=== PATIENT | female | born 1960 | race Caucasian/White ===

== ENCOUNTER → 2020-10-09 | Outpatient (CLI) | payer BC, OTHER ==
--- NOTE | 2020-10-09 14:50 | RAD ---
EXAM: Bilateral knees, 3 views. HISTORY: Pain. COMPARISON: None. FINDINGS: 3 views of both knees are obtained. There is no fracture, dislocation or subluxation. There is mild left medial compartment joint space narrowing which is likely projectional. There is no join t effusion. IMPRESSION: No acute osseous finding. Electronically signed by: Pat Park MD (10/09/2020 2:48 PM) [id number]
== END ==
LOC: RAD 13:28
PROVIDERS: ATTEND Physician Assistant
DX: M25.562 Pain in left knee (principal); M25.561 Pain in right knee
CPT/HCPCS: 73560; 73565

== ENCOUNTER → 2020-11-06 | Outpatient (CLI) | payer OTHER ==
--- NOTE | 2020-11-06 08:38 | RAD ---
EXAM: Abdomen sonogram. HISTORY: Pain. TECHNIQUE: Sonographic imaging of the abdomen was performed. COMPARISON: None. FINDINGS: The liver is normal in size. There are 3 solid circumscribed hyperechoic lesions within the liver, the largest of which measures 5.3 cm. The gallbladder is surgically absent. The common bile d uct is mildly dilated for patient age, measuring 6.8 mm. The right kidney, pancreas and inferior vena cava are unremarkable. IMPRESSION: 1. 3 solid circumscribed hyperechoic nodules within the liver, the largest which measures 5.3 cm. In the absence of known malignancy, these are likely hemangiomas. Liver protocol MRI or CT can be perfor med to confirm benignity if clinically indicated. 2. Mild common bile duct dilatation. This may be due to reservoir effect status post cholecystectomy. Electronically signed by: Pat Park MD (11/06/2020 8:36 AM) [id number]
== END ==
LOC: US 07:46
PROVIDERS: ATTEND Clinical Nurse Specialist Family Health
DX: R10.31 Right lower quadrant pain (principal); Z90.49 Acquired absence of other specified parts of digestive tract
CPT/HCPCS: 76705

== ENCOUNTER → 2021-02-25 | Outpatient (CLI) | payer OTHER ==
[~2021-02-25] MED LIST: IOHEXOL 300 MG/ML 75 ML VIAL. IV ONE
--- NOTE | 2021-02-25 09:48 | RAD ---
EXAMINATION: CT ABDOMEN (LIVER) WITHOUT AND WITH IV CONTRAST CLINICAL HISTORY: Follow-up for 3 hepatic lesions on recent abdominal ultrasound TECHNIQUE: Noncontrast, hepatic arterial, portal venous, and 10 minute delayed phase imaging of the quentin chavez was performed utilizing IV contrast (Liver protocol). CT Dose Reduction Employed: One or more of the following individualized dose reduction techniques wer e utilized for this examination: 1. Automated exposure control 2. Adjustment of the mA and/or kV ac cording to patient size 3. Use of iterative reconstruction technique. COMPARISON: Right upper quadrant ultrasound 11/06/2020 FINDINGS: Minimal curvilinear subsegmental atelectasis and/or scarring in the right middle lobe. 1.4 cm hypodense lesion in the anterior inferior right hepatic lobe and 2.9 x 5.1 x 5.0 cm in the pos terior inferior right hepatic lobe, corresponding to 2 of the 3 lesions seen sonographically. Both le sions are hypodense on unenhanced images with peripheral lobular discontinuous contrast enhancement a nd progressive centripetal enhancement on delayed phase images. In the larger of the 2 lesions, even though there is progressive enhancement on delayed imaging the enhancement pattern remains heterogene ous with central areas of hypoenhancement. A third hepatic lesion is not definitively visualized. Biliary ductal prominence status post cholecystectomy. Pancreas, spleen, adrenal glands, and kidneys unremarkable. Tiny hiatal hernia. Partially visualized small bowel and colon unremarkable. Minimal arterial atherosclerotic calcification without aneurysm. Partially visualized thoracolumbar d egenerative changes with advanced degenerative disc disease at L2-3. IMPRESSION: 5.1 cm lesion in the posterior inferior right hepatic lobe, highly suggestive of but not definitively diagnostic for a hemangioma with persistent heterogeneous enhancement on delayed images. Follow-up f or hepatic ultrasound could be obtained in 6 months to evaluate for stability. If there are risk fact ors for malignancy, liver protocol MRI with intravenous contrast may be able to provide additional in formation. 1.4 cm lesion in the anterior-inferior right hepatic lobe, consistent with a hemangioma. Advanced degenerative disc disease at L2-3. Electronically signed by: Nic Topete DO (02/25/2021 9:46 AM) [id number]
== END ==
LOC: CT 07:59
PROVIDERS: ATTEND Clinical Nurse Specialist Family Health
DX: K44.9 Diaphragmatic hernia without obstruction or gangrene (principal); K76.9 Liver disease, unspecified; M51.36 Other intervertebral disc degeneration, lumbar region; J98.11 Atelectasis; I70.8 Atherosclerosis of other arteries; Z90.49 Acquired absence of other specified parts of digestive tract
CPT/HCPCS: 74170; Q9967

== ENCOUNTER → 2021-10-15 | Outpatient (CLI) | payer OTHER ==
--- NOTE | 2021-10-15 11:47 | RAD ---
EXAMINATION: CT abdomen with and without IV contrast. INDICATION:61 years, Female, liver disease. TECHNIQUE: Axial CT images of the abdomen was obtained. Coronal and sagittal reformatted performed. COMPARISON: 02/25/2021. Exposure: One or more of the following individualized dose reduction techniques were utilized for thi s examination: 1. Automated exposure control 2. Adjustment of the mA and/or kV according to patient size 3. Use of iterative reconstruction technique. FINDINGS: LOWER CHEST: Unremarkable. ABDOMEN: Normal size and morphology of the liver. Subcentimeter hypodensities in left hepatic lobe, too small to characterize. Redemonstrated 4.8 x 2.7 cm, hypodense lesion in hepatic segment 6 demonstrates peripheral discontinu ous nodular enhancement with progressive fill-in, stable in size since prior exam. * Stable ill-defined 1.2 cm nodular enhancing lesion in hepatic segment 5 (series 4 image 21), appea rs mild homogeneous enhancement on venous phase images and isodense to the liver parenchyma on delaye d images. * Similar appearance and enhancement pattern to the aforementioned lesion, there is 0.9 cm lesion in segment 8 (series 4 image 12), this lesion is also stable since prior exam. * Stable 0.7 cm, arterial enhancing lesion in hepatic segment 7 appears isodense to the liver on sub sequent postcontrast images, favors flash filling hemangioma. Cholecystectomy. No biliary ductal dilation. Spleen is normal. Pancreas is unremarkable. No adrenal n odule. No hydronephrosis or nephrolithiasis in either kidney. No bowel dilation. No lymphadenopathy i n the abdomen by size criteria. Patent abdominal vasculatures. No pneumoperitoneum or ascites. MUSCULOSKELETAL STRUCTURES: Severe degenerative changes at L2-L3. No acute osseous process or suspicious lesion. IMPRESSION: Stable multiple hepatic lesions including a 4.8 cm lesion in hepatic segment 6 demonstrate peripheral discontinuous nodular enhancement and progressive fill-in. These are most likely hemangiomas. Electronically signed by: Ana Juan MD (10/15/2021 11:45 AM) [facility] [email or web address]
== END ==
LOC: CT 08:32
PROVIDERS: ATTEND Clinical Nurse Specialist Family Health
DX: K76.9 Liver disease, unspecified (principal); M47.816 Spondylosis without myelopathy or radiculopathy, lumbar region
CPT/HCPCS: 74170; Q9967